=== PATIENT | male | born 1990 ===

== ENCOUNTER 2018-07-19 07:38 | Emergency (ER) | payer OTHER ==
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
[2018-07-19] MEDS ORDERED: Ibuprofen 600 MG Tab PO ONE (08:54)
== END 2018-07-19 09:10 | disposition home or self-care (01) ==
LOC: KA.ED 07:38
DX: S93.401A Sprain of unspecified ligament of right ankle, initial encounter (principal); S00.01XA Abrasion of scalp, initial encounter; V69.40XA Driver of heavy transport vehicle injured in collision with unspecified motor vehicles in traffic accident, initial encounter
CPT/HCPCS: 73610-RT; 99284-25; A9270-GY